=== PATIENT | female | born 1950 | race Caucasian/White ===

== ENCOUNTER 2025-03-21 13:12 | Outpatient (CLI) | payer MEDICARE, SELFPAY ==
--- NOTE | ~2025-03-21 | DEXA_ITS ---
Bone Density Report Name: DILCIA RAMOS Age: 74 Sex: Female Ethnicity: White Date of : 1950 Indication: postmenopausal; screening for osteoporosis; height loss; Referring Provider: KATHY GRISSOM Study: Bone densitometry was performed. Exam Date: March 21, 2025 Accession number: [id number] Bone Density: Region BMD T-score Z-score Classification AP Spine(L1-L4) 0.819 -2.1 0.2 Osteopenia Femoral Neck (Left) 0.496 -3.2 -1.2 Osteoporosis Total Hip (Left) 0.536 -3.3 -1.7 Osteoporosis Femoral Neck (Right) 0.500 -3.1 -1.2 Osteoporosis Total Hip (Right) 0.587 -2.9 -1.2 Osteoporosis Total Hip Mean 0.562 -3.1 -1.5 Osteoporosis World Health Organization criteria for BMD impression classify patients as: Normal (T-score at or above -1.0), Osteopenia (T-score between -1.0 and -2.5), or Osteoporosis (T-score at or below -2.5). 10-year Fracture Risk: FRAX not reported because: Some T-score for Spine Total or Hip Total or Femoral Neck at or below -2.5 Treated for osteoporosis Clinical Information Provided by Patient: Is being treated for osteoporosis Has used the following medications: Vitamin D, Calcium Patient maximum height was 61 Menopause Age: 47 Drinks caffeinated beverages Onset of menses at age 14 Number of children 2 Impression: The patient has osteoporosis, based on the Left Total Hip T-score. Discussion: It is important to ask patients whether they are taking their medications and to encourage continued and appropriate compliance with their osteoporosis therapies to reduce fracture risk. It is also important to review their risk factors and encourage appropriate calcium and vitamin D intakes, exercise, fall prevention and other lifestyle measures. Follow-Up: Consider a repeat BMD and Vertebral Fracture Assessment (VFA) exam in 2 years or sooner if medically necessary, to reassess this patient's status. Reported by: LORETA on 03/21/2025 1:39:00 PM. Reviewed, dictated and finalized at location A.
== END 2025-03-21 13:13 | disposition home or self-care (01) ==
PROVIDERS: PCP Nurse Practitioner Family; Visit Provider Nurse Practitioner Family
DX: M81.0 Age-related osteoporosis without current pathological fracture (principal); M85.89 Other specified disorders of bone density and structure, multiple sites; Z78.0 Asymptomatic menopausal state
CPT/HCPCS: 77080